=== PATIENT | female | born 1990 | race Caucasian/White ===

== ENCOUNTER 2022-11-21 09:30 | Outpatient (CLI) | payer BC, OTHER, SELFPAY | END 2022-11-21 09:31 | disposition home or self-care (01) | LOC: AMB 11-22 09:24 | PROVIDERS: PCP Family Medicine; Visit Provider Emergency Medicine | DX: R10.9 Unspecified abdominal pain (principal); R11.2 Nausea with vomiting, unspecified | CPT/HCPCS: A0425; A0427 ==

== ENCOUNTER 2022-11-21 09:53 | Emergency (ER) | payer BC, OTHER, SELFPAY ==
[2022-11-21] VITALS (7 sets, daily range): BP systolic 118–142; BP diastolic 71–76; PULSE 71–87; RESP 14–20; TEMP 35.1–36.1; O2SAT 97–100; BMI 41.5
--- NOTE | 2022-11-21 09:55 | ED.GENADULT ---
HPI - General Adult General Time Seen by Provider: 09:55 Date Seen: 11/21/22 Chief complaint: Nausea/Vomiting Stated complaint: shortness of breath and chest pain Time Seen by Provider: 11/21/22 09:55 Source: patient, EMS, RN notes reviewed and other (phone call from clinic from provider Dr. Ferrer) Mode of arrival: EMS Limitations: no limitations History of Present Illness HPI narrative: This 32-year-old female is brought in by ambulance from [facility] where she was seeing Dr. Ferrer for routine OB appointment and was to have a schedule biophysical profile due to obesity in , have been following them weekly. In route to her appointment she develop severe epigastric pain radiating into her back. There is no radiation to her shoulder. She felt short of breath and the fact that it hurts in the epigastric area to take a deep breath. No cough or cold symptoms, no fevers chills. She did have subsequent couple emesis in clinic. She was diaphoretic. She has had nausea vomiting throughout the but this is different, is never had pain like this before. EMS got her sugar to be 134, did place an IV in the left antecubital fossa, she receive 4 mg IV Zofran which is helping. She is still having severe pain in the epigastric area and it hurts worse with breathing. She has had no contractions, no vaginal discharge or bleeding. Denies any urinary symptoms. Only abdominal surgery is a prior . She has reported the 3 para 1 at 34 weeks and 1 day . MD complaint: Severe epigastric pain radiating to back in patient Onset (ago): minute(s) Radiation: back Severity: severe Pain Consistency: constant Relieving factors: none Related Data Home Medications Medication Instructions Recorded Confirmed docosahexaenoic acid 200 mg mg PO PRN 10/28/22 10/28/22 capsule ( DHA) fluoxetine 40 mg capsule 40 mg PO DAILY 10/28/22 10/28/22 ondansetron 4 mg disintegrating 4 mg PO Q8H PRN 10/28/22 10/28/22 tablet Previous Rx's Medication Instructions Recorded ondansetron 4 mg disintegrating 4 mg PO Q8H PRN nausea and 11/21/22 tablet vomiting #20 tabs oxycodone-acetaminophen 5 mg-325 1 tab PO Q6H PRN pain #20 tabs 07/06/23 mg tablet (Percocet) Allergies Allergy/AdvReac Type Severity Reaction Status Date / Time No Known Drug Allergies Allergy Verified 10/28/22 08:00 Review of Systems Status of ROS: Reports: 6 or more systems reviewed and unremarkable except as noted in History and below [facility] Medical History Migraines ?G43.909 - Migraine, unspecified, not intractable, without status migrainosus (ICD-10) History of vitamin D deficiency ?Z86.39 - Personal history of other endocrine, nutritional and metabolic disease (ICD-10) Blighted ovum (11/13/19) ?O02.0 - Blighted ovum and nonhydatidiform mole (ICD-10) Surgical History Status post delivery (05/21/16) ?Z98.891 - History of uterine scar from previous surgery (ICD-10) Family History Father High blood pressure Maternal Grandfather Diabetes Social History Smoking Status: Former smoker Non-prescribed substance use: denies use Exam Const: Vital Signs, click to edit/add: Vital Signs - 24 hr 11/21/22 10:00 11/21/22 10:01 11/21/22 10:01 Temperature 95.1 F L 95.1 F L Pulse Rate 73 Pulse Rate [Pulse Oximeter] 74 Respiratory Rate 20 14 Blood Pressure 139/76 Blood Pressure [Ri ght Upper Arm] 139/76 Pulse Oximetry 98 100 100 Oxygen Delivery Me thod Room Air 11/21/22 10:32 11/21/22 11:02 11/21/22 11:15 Temperature 96.6 F L Pulse Rate 71 73 Pulse Rate [Pulse Oximeter] Respiratory Rate Blood Pressure 142/71 H 131/71 Blood Pressure [Ri ght Upper Arm] Pulse Oximetry 99 98 Oxygen Delivery Me thod 11/21/22 11:15 11/21/22 13:09 Temperature 96.6 F L 96.9 F L Pulse Rate 87 71 Pulse Rate [Pulse Oximeter] Respiratory Rate 14 Blood Pressure Blood Pressure [Ri ght Upper Arm] Pulse Oximetry 99 97 Oxygen Delivery Me thod Documenting provider has reviewed patient's vital signs: yes Common normals: oriented x3 and alert General appearance: cooperative, well kempt, well developed, in distress and ill appearing Other: patient that appears uncomfortable, slow in her movements, looks like she does not feel well and is diaphoretic but otherwise skin visualized without rash. HENMT: Common normals: normocephalic, head/scalp atraumatic, hearing grossly normal bilaterally and external nose normal Head and scalp: normocephalic and atraumatic Face and sinus: normal facial exam Nose: external nose normal Eye: Common normals: PERRL, EOMs intact bilaterally, conjunctivae normal and no scleral icterus Conjunctiva: conjunctiva(e) normal Pupil: PERRL Neck & C-Spine: Common normals: full ROM, no lymphadenopathy, supple, no meningeal signs, no JVD and thyroid normal Thyroid: thyroid normal Chest: Common normals: inspection of chest normal and palpation of chest normal Resp: Common normals: normal respiratory effort, no retractions, no use of accessory muscles and clear to auscultation bilaterally Effort & inspection: able to speak in complete sentences Auscultation: clear to auscultation bilaterally Cardio: Common normals: no JVD, regular rate, regular rhythm, S1 normal heart sound, S2 normal heart sound, no gallops, no clicks and no murmurs Rate: regular rate Rhythm: regular rhythm Heart sounds: S1 normal and S2 normal GI: Other: Gravid patient with significant epigastric tenderness, right upper quadrant tenderness as well but seems to be most tender in epigastric area. I do not sense guarding at this time but do feel that there is a bit of rebound in the epigastric area. Uterus is gravid and nontender. Extremity: Common normals: no calf tenderness and no pedal edema Other: Transfers herself from the ambulance gurney to the ER cart. Neuro: Common normals: oriented x3 Sensorium/orientation: alert Meningeal signs: no meningeal signs Psych: Appearance: well kempt Course Course Hospital Course: Patient is in need of some pain management, will give 4 mg IV Zofran and she will be monitored on pulse oximetry. EMS did give her Zofran which seems to be improving the nausea symptoms. Will be obtaining a right upper quadrant/limited abdominal ultrasound. I worry about gallbladder disease and possible pancreatitis with this. She is hemodynamically stable from the report in clinic and EMS, will see what her vitals are trending here. There is no evidence of tachycardia or hypoxia. I think this is an abdominal process rather than anything pulmonary or cardiac. Will review the EKG from clinic, hopefully it was sent but report from Dr. Ferrer was that it showed normal sinus rhythm. Will do full complement of labs. When she is had her abdominal ultrasound which is to happen shortly, will have Ob nursing staff come down and do monitoring for biophysical profile. Reevaluation(s) Time of Reevaluation #1: 11:50 Reevaluation #1: Patient is actually feeling a bit better after the 2nd dose of Zofran and a subsequent extra 2 mg IV morphine. Reviewed that there is cholelithiasis. Her mom was wondering if this was not the case as she has been so sick this whole . We reviewed that the preference is to allow the baby to deliver 1st before doing any surgery for gallbladder. There is no evidence of pancreatitis or cholecystitis at this time. She has taken Percocet in the past. Were going to give her an oral dose now and see if she tolerates it. We can send her home with Percocet and Zofran. She notes that she absolutely has no respiratory symptoms now that her pain is better. It is not hurting to breathe, not feeling short of breath because of pain with breathing. Again, inclined to not do any further imaging such as chest CT PE protocol as I do not feel it is indicated. Consultations Consultation #1: Patient is done with her right upper quadrant ultrasound, awaiting radiology over read of this. Have contacted Ob staff to come do monitoring/NST of this patient while here. Time: 10:53 Consultation #2: Spoke with our general surgeon Dr. Fernandez. She would like to see how patient does with pain management. Obviously, it is favored to deliver the baby 1st before any surgery for her gallbladder. There is no evidence of cholecystitis or pancreatitis at this time. Will work on pain management and see if we can discharge to home for further outpatient evaluation with a surgical consult. Time: 11:34 Consultation #3: Did update Dr. Ferrer, reviewed patient situation. I have not been into re-evaluate the patient since she requires 2nd dose of morphine and Zofran for pain and nausea respectively. It would appear that there is cholelithiasis. Based on her complaint of her respiratory symptoms being attached to the epigastric pain, feel that this is unlikely to be thromboembolic disease. I will re-evaluate patient and see how she is doing. Time: 11:39 Additional Consultation(s): Did speak with Dr. Ferrer prior to discharge. Patient is going to be discharged from the ER, she will go to OB to await BPP, had NST while here and baby was not super reactive but Mom and dad IV morphine/narcotics. Will discharge with appropriate Percocet and Zofran, she is to follow up tomorrow in clinic at 10:00 a.m. with her primary care provider. Vital Signs Vital signs: Initial Vital Signs Pulse Oximetry 98 11/21/22 10:00 Vital Signs Pulse Oximetry 98 11/21/22 10:00 Temperature 96.9 F L 11/21/22 13:09 Pulse Rate 71 11/21/22 13:09 Respiratory Rate 14 11/21/22 13:09 Blood Pressure 131/71 11/21/22 11:02 Pulse Oximetry 97 11/21/22 13:09 Oxygen Delivery Method Room Air 11/21/22 10:01 Medical Decision Making Lab Data Lab results reviewed: Yes I reviewed the patient's lab results Labs: Lab Results 11/21/22 11/21/22 Range/Units 10:30 11:40 WBC 13.19 H (4.50-11.00) K/uL RBC 4.29 (4.00-5.20) m/uL Hgb 11.5 L (12.0-16.0) gm/dL Hct 35.3 (33.0-51.0) % MCV 82 (80-100) fL MCH 27 (26-34) pg MCHC 33 (32-36) gm/dL RDW Coeff of Ce 13.2 (11.5-15.5) % Plt Count 279 (140-440) K/uL Neut % (Auto) 82.6 H (42.0-72.0) % Lymph % (Auto) 12.1 L (20-44) % [place] % (Auto) 4.7 (0.0-11.0) % Eos % (Auto) 0.1 (0.0-7.0) % Baso % (Auto) 0.2 (0.0-3.0) % Neut # (Auto) 10.90 H (1.7-7.0) K/uL Lymph # (Auto) 1.60 (0.90-2.90) K/uL [place] # (Auto) 0.60 (0.00-0.90) K/UL Eos # (Auto) 0.00 (0.00-0.50) K/uL Baso # (Auto) 0.00 (0.00-0.30) K/uL Sodium 133 L (135-149) mmol/L Potassium 3.5 L (3.6-5.1) mmol/L Chloride 105 (96-114) mmol/L Carbon Dioxide 18 L (20-32) mmol/L BUN 5 (5-24) mg/dL Creatinine 0.4 L (0.5-1.5) mg/dL Estimated Creat Clear 168.57 Estimated GFR 136 ml/min Glucose 128 H (60-115) mg/dL Lactate 1.7 (0.5-1.9) mmol/L Calcium 9.2 (8.4-10.6) mg/dL Total Bilirubin 0.4 (0.1-1.5) mg/dL Direct Bilirubin 0.1 (0.0-0.5) mg/dL AST 18 (12-35) U/L ALT 14 (4-35) U/L Alkaline Phosphatase 155 H (40-150) U/L C-Reactive Protein 4.8 H (0.5-1.0) mg/dL Total Protein 6.6 (6.0-8.3) g/dL Albumin 3.4 (3.3-5.0) g/dL Lipase 62 (23-300) U/L Urine Color Yellow (Yellow) Urine Appearance Turbid A (Clear) Urine pH 8.5 (5.0-8.5) Ur Specific [place] 1.020 (1.000-1.030) Urine Protein Trace A (Negative) Urine Glucose (UA) Negative (Negative) Urine Ketones 3+ A (Negative) Urine Blood Negative (Negative) Urine Nitrite Negative (Negative) Urine Bilirubin Negative (Negative) Urine Urobilinogen 0.2 (0.2-1.0) Ur Leukocyte Esterase Negative (Negative) Urine RBC 0-2 (0-2) Urine WBC 0-2 (0-5) Ur Squamous Epith Cells Few (None-Few) Amorphous Sediment Many A (None) Urine Bacteria Moderate A (None) Urine Mucus Few A (None) POC Troponin I 0.02 (0.01-0.04) ng/ml Imaging Data US - abdomen: Attestation: I have reviewed the pertinent imaging results. Radiologist's impression: Patient: LANDEN BAEZ Facility:?[facility] Patient ID:?[id number] Site Patient ID:?[id number]. Site :?[id number] Study:?US Abdomen RUQ-11/21/2022 10:56:04 AM Ordering Physician:?Janae Khoury Final Report: INDICATION: RUQ/ EPIGASTRIC PAIN WITH NAUSEA AND VOMITING COMPARISON: none TECHNIQUE: Real time muñoz scale imaging and color Doppler analysis was performed of the right upper quadrant. FINDINGS: The patient`s liver is of normal size and has uniform echogenicity. There is a normal appearance of the hepatic IVC and proximal abdominal aorta. There is no evidence of ascites. The gallbladder is of normal size and there is a tiny amount of layering sludge within the gallbladder lumen along with a small layering stone. The gallbladder wall measures 2 mm in thickness. The common bile duct is of normal size and measures 6 mm in diameter at the level of the luisito hepatis. The pancreas appears normal. There is no evidence of a stone or hydronephrosis within the right kidney. The right kidney measures 12.7 cm in length. IMPRESSION: Mild cholelithiasis. No evidence of cholecystitis. Dictated by Mateo Rashid MD @ 11/21/2022 11:20:16 AM (Electronic Signature) Critical Care Time Critical Care Time Critical Care Time: No Discharge Plan Discharge Clinical Impression: Cholelithiasis affecting in third trimester, antepartum Patient Disposition: Home, Self-Care Condition: Improved Instructions: Gallstones (ED) Additional Instructions: Proceed to OB to have BPP done. Need to follow up in clinic at 10am tomorrow with Dr. Ferrer. Have sent in percocet and zofran for you. Need to get scheduled for follow up appointment with general surgery, Dr. Ferrer can help get this scheduled. If you develop fever with increased abdominal pain, uncontrolled vomiting despite medications, have worsening abdominal pain, need to be re-evaluated. Activity Level: Activity as Tolerated Discharge Diet: Low Fat/Low Cholesterol Prescriptions: New ondansetron 4 mg tablet,disintegrating 4 mg PO Q8H PRN (Reason: nausea and vomiting) Qty: 20 0RF oxycodone-acetaminophen [Percocet] 5-325 mg tablet 1 tab PO Q6H PRN (Reason: pain) Qty: 20 0RF No Action DHA 200 mg capsule PO PRN ondansetron 4 mg tablet,disintegrating 4 mg PO Q8H PRN fluoxetine 40 mg capsule 40 mg PO DAILY Follow Up/Referrals: Lauren Ferrer MD [Primary Care Provider] - Stand Alone Forms: Swipp Info Instructions
--- NOTE | 2022-11-21 10:00 | CRLHL7_ITS ---
For Patients: As a result of the Century Cures Act, medical imaging exams and procedure reports are released immediately into your electronic medical record. You may view this report before your referring provider. If you have questions, please contact your health care provider. INDICATION: RUQ/ EPIGASTRIC PAIN WITH NAUSEA AND VOMITING COMPARISON: none TECHNIQUE: Real time muñoz scale imaging and color Doppler analysis was performed of the right upper quadrant. FINDINGS: The patient`s liver is of normal size and has uniform echogenicity. There is a normal appearance of the hepatic IVC and proximal abdominal aorta. There is no evidence of ascites. The gallbladder is of normal size and there is a tiny amount of layering sludge within the gallbladder lumen along with a small layering stone. The gallbladder wall measures 2 mm in thickness. The common bile duct is of normal size and measures 6 mm in diameter at the level of the luisito hepatis. The pancreas appears normal. There is no evidence of a stone or hydronephrosis within the right kidney. The right kidney measures 12.7 cm in length. IMPRESSION: Mild cholelithiasis. No evidence of cholecystitis. Dictated by Mateo Rashid MD @ 11/21/2022 11:20:16 AM (Electronically Signed)
[2022-11-21] MEDS: MORPHINE 4 MG/ML INJ IVP (10:09)
[2022-11-21] MEDS: 0.9 % SODIUM CHLORIDE 1000 ml 1,000 ML 500 ML IV (10:11)
[2022-11-21 10:41] LABS: Lactate* 1.7 mmol/L (0.5-1.9)
[2022-11-21 10:45] LABS: Basophils Percent Auto 0.2 % (0.0-3.0); Eosinophils Percent Auto 0.1 % (0.0-7.0); Hematocrit 35.3 % (33.0-51.0); Hemoglobin* 11.5 gm/dL (12.0-16.0); Immature Granulocytes Pct Auto 0.3 %; Lymphocytes Percent Auto 12.1 % (20-44); Mean Corpuscular HGB Conc 33 gm/dL (32-36); Mean Corpuscular Hemoglobin 27 pg (26-34); Mean Corpuscular Volume 82 fL (80-100); Monocytes Percent Auto 4.7 % (0.0-11.0); Neutrophils Percent Auto 82.6 % (42.0-72.0); Platelet Count* 279 K/uL (140-440); RDW Coefficient of Variation % 13.2 % (11.5-15.5); Red Blood Count 4.29 m/uL (4.00-5.20); White Blood Count* 13.19 K/uL (4.50-11.00)
[2022-11-21 10:49] LABS: Slide Review Reflex No
[2022-11-21 11:00] LABS: Troponin, Point-of-Care* 0.02 ng/ml (0.01-0.04)
--- NOTE | 2022-11-21 11:01 | ED.NURSE ---
Unable to obtain temp >95.1 oral after warm blankets. MD informed. Will continue to monitor.
[2022-11-21 11:09] LABS: Albumin* 3.4 g/dL (3.3-5.0); Chloride* 105 mmol/L (96-114); Sodium* 133 mmol/L (135-149)
[2022-11-21 11:10] LABS: Potassium* 3.5 mmol/L (3.6-5.1)
[2022-11-21 11:11] LABS: Creatinine* 0.4 mg/dL (0.5-1.5); Est. Creatinine Clearance* 168.57; Estimated Glomerular Filt Rate 136 ml/min
[2022-11-21 11:12] LABS: Alkaline Phosphatase* 155 U/L (40-150); Aspartate Amino Transferase* 18 U/L (12-35); Bilirubin Direct* 0.1 mg/dL (0.0-0.5); Bilirubin Total* 0.4 mg/dL (0.1-1.5); Blood Urea Nitrogen* 5 mg/dL (5-24); Carbon Dioxide* 18 mmol/L (20-32); Lipase* 62 U/L (23-300); Total Protein* 6.6 g/dL (6.0-8.3)
[2022-11-21 11:13] LABS: Alanine Aminotransferase* 14 U/L (4-35); Calcium* 9.2 mg/dL (8.4-10.6); Glucose* 128 mg/dL (60-115)
[2022-11-21 11:15] LABS: C Reactive Protein* 4.8 mg/dL (0.5-1.0)
[2022-11-21] MEDS: ONDANSETRON 2 MG/ML inj 4 MG IVP (11:30)
[2022-11-21] MEDS: MORPHINE 2 MG/ML inj IVP (11:38)
[2022-11-21 11:48] LABS: Appearance Urine Turbid (Clear); Bilirubin Urine Negative (Negative); Blood Urine Negative (Negative); Color Urine Yellow (Yellow); Glucose Urine Negative (Negative); Ketones Urine 3+ (Negative); Leukocyte Esterase Urine Negative (Negative); Nitrite Urine Negative (Negative); Protein Urine Trace (Negative); Urobilinogen Urine 0.2 (0.2-1.0); pH Urine 8.5 (5.0-8.5)
[2022-11-21 12:07] LABS: Amorphous Sediment Urine Many; Bacteria Urine Moderate; Mucus Urine Few; RBC Urine 0-2 (0-2); Squamous Epithelial Cell Urine Few (None-Few); WBC Urine 0-2 (0-5)
--- NOTE | 2022-11-21 12:14 | ED.NURSE ---
OB RN at bedside.
--- NOTE | 2022-11-21 13:42 | ED.NURSE ---
Patient to US for BPP.
--- NOTE | 2022-11-21 17:09 | PC.OBNST ---
NST Note NST Note Start: 11/21/22 12:45 Freq: ONCE Status: Discharge Protocol: Document 11/21/22 17:05 ABP (Rec: 11/21/22 17:08 ABP [id number]) NST Note 3 Para (# of births) 1 EDC 01/01/23 Gestational Age In Weeks & Days 34 Weeks & 1 Days Patient Presented with Complaint(s) of Other Other Complaints Diagnosed with gallstones in ED Reactive No Appropriate for Gestational Age No CANDICE Ramirez RN Date 11/21/22 Reactive No Appropriate for Gestational Age No CANDIEC Lancaster RN Date 11/21/22 OB NST charge Yes Complete NST Note via Write Note Yes The provider's electronic signature indicates the NST is reactive/appropriate for gestational age. *Note to provider: If an addendum is required, open the patient's chart and click on the note under the Nurse/Allied Health tab.
== END 2022-11-21 13:46 | disposition home or self-care (01) ==
PROVIDERS: Emergency Provider Family Medicine; PCP Family Medicine
DX: K80.20 Calculus of gallbladder without cholecystitis without obstruction (principal); O26.93 Pregnancy related conditions, unspecified, third trimester
CPT/HCPCS: 36415; 59025; 76705; 76819; 80053; 81001; 82248; 83605; 83690; 84484; 85025; 86140; 87086; 94761; 99211; 99283; 99285; J2270; J2405; J7030

== ENCOUNTER 2022-11-21 14:22 | Outpatient (CLI) | payer BC, OTHER, SELFPAY ==
[2022-11-21 15:14] VITALS: BP 126/66; PULSE 81
--- NOTE | 2022-11-21 17:10 | PC.OBNST ---
NST Note NST Note Start: 11/21/22 15:12 Freq: ONCE Status: Discharge Protocol: Document 11/21/22 15:31 ABP (Rec: 11/21/22 15:33 ABP [id number]) NST Note 3 Para (# of births) 1 EDC 01/01/23 Gestational Age In Weeks & Days 34 Weeks & 1 Days Patient Presented with Complaint(s) of Other Other Complaints Patient was seen in ED for gallstones. Did not have reactive NST there after receiving Morphine. Got BPP to confirm. Got 6/8 on BPP. Back to Center for NST. Reactive Yes Appropriate for Gestational Age Yes CANDICE Ramirez, RN Date 11/21/22 Reactive Yes Appropriate for Gestational Age Yes CANDICE Lancaster, CANDICE Date 11/21/22 OB NST charge Yes Complete NST Note via Write Note Yes The provider's electronic signature indicates the NST is reactive/appropriate for gestational age. *Note to provider: If an addendum is required, open the patient's chart and click on the note under the Nurse/Allied Health tab.
== END 2022-11-21 15:25 | disposition home or self-care (01) ==
LOC: OB CLI 14:23 → OB 14:26
PROVIDERS: PCP Family Medicine; Visit Provider Family Medicine
DX: O26.613 Liver and biliary tract disorders in pregnancy, third trimester (principal)
CPT/HCPCS: 36415; 59025; 76705; 76819; 80053; 81001; 82248; 83605; 83690; 84484; 85025; 86140; 87086; 94761; 99211; 99285; J2270; J2405; J7030

== ENCOUNTER 2022-12-06 17:00 | Inpatient (IN) | payer BC, OTHER, SELFPAY ==
[2022-12-06] VITALS (62 sets, daily range): BP systolic 84–144; BP diastolic 59–71; PULSE 62–90; RESP 18–20; TEMP 36.4–36.5; O2SAT 81–100
[2022-12-06] MEDS: LACTATED RINGERS 1000 ML 1,000 ML IV ×2 (07:28→08:55)
--- NOTE | 2022-12-06 07:37 | PM.OBHPLI ---
OB - H&P: HPI Labor/Induction History of Present Illness Time Seen by Provider: 07:37 Date Seen: 12/06/22 Chief Complaint: The patient is a 32 year old 3 para 1001 at 36.2 weeks gestation by early ultrasound, who presents with concern for labor. Chief complaint: maternity : 3 Para: 1 Narrative: Khadra Glaser is a 32 year old female 3 para 1001 at 36.2 weeks gestation by early ultrasound, who presents with concern for labor. Patient was seen in clinic yesterday, was closed/thick/high. She started iwona this morning at 3am. Woke her from sleep. She tried position changes, bath, did not change the contractions. She is unable to speak through contractions. She is iwona every3-5 minutes. No bleeding, no gush of fluid. she believes baby is moving well. She was seen yesterday in clinic and had BPP 8/10 (non reactive NST) done for BMI>35. She had LUIS FERNANDO of 4.98 with SDB of 2. We had elected to hydrate overnight and recheck fluid level this morning. She is planning a repeat . She did have symptomatic cholelithiasis 2 weeks ago requiring extended ED stay. She has not had recurrence. Did receive morphine and percocet at that time. She is on prozac for mood She has mild asthma, on albuterol prn History of Present Dating criteria: based on LMP (approximate LMP and confirmed by early ultrasound) care: good care Ultrasounds: normal mid trimester US Abnormal ultrasound findings: Level 2 done with [facility] Narrative: symptomatic cholelithiasis, no recurrence of symptoms. Labs Blood type: A (+) positive Rubella: immune RPR/VDLR: nonreactive GBS status: unknown HBsAG: negative Review of Systems Const: Reports: fatigue Eyes: Denies: change in vision or blurry vision Cardio: Denies: chest pain, edema or shortness of breath with exertion Resp: Denies: shortness of breath GI: Reports: abdominal pain, nausea and vomiting : Denies: painful urination Integ/Breast: Denies: rash Neuro: Denies: headache Endo: Reports: fatigue Meds Home Medications and Allergies Home Medications Medication Instructions Recorded Confirmed Type docosahexaenoic acid 200 mg mg PO PRN 10/28/22 10/28/22 History capsule ( DHA) fluoxetine 40 mg capsule 40 mg PO DAILY 10/28/22 11/21/22 History ondansetron 4 mg disintegrating 4 mg PO Q8H PRN 10/28/22 11/21/22 History tablet diphenhydramine HCl 50 mg/30 mL 25 mg PO QHS 11/21/22 11/21/22 History oral liquid (NightTime Sleep Aid (diphenhydramine)) Allergies Allergy/AdvReac Type Severity Reaction Status Date / Time No Known Drug Allergies Allergy Verified 10/28/22 08:00 OB - H&P: Exam Physical Exam: Vital signs: Pulse BP Pulse Ox 71 138/66 99 12/06/22 07:37 12/06/22 07:37 12/06/22 07:35 Constitutional: Constitutional: mild distress (appears very uncomfortable with contractions) Routine HEENT Exam: Head: Present atraumatic and scalp tenderness Routine Neck Exam: Neck: Present full ROM Routine Respiratory Exam: Respiratory: Present CTA bilaterally Routine Cardiovascular Exam: Cardiovascular: RRR, S1 and S2 Detailed Abdominal Exam: Comments: gravid, nontender, softens between contractions Routine Exam: Perineum Description: Normal Detailed Labor and Delivery Exam: Patient Gravid: Yes Dilation (cm): 1 Effacement (%): 70 Cervix position: mid Consistency: soft Contraction frequency (min): 4 Tachysystole: No Contraction intensity: Moderate Fetus (Single): Station: 0 Amniotic Membrane Status: intact Heart Rate Baseline: 135 Monitor Accelerations: Present Monitor Decelerations: None Long-Term Variability: Moderate (6-25) Routine Back/Spine/Pelvis Exam: Back/Spine: full ROM Routine Neurological Exam: Present alert Routine Psychiatric Exam: Present normal affect OB - Problem Based A/P Additional Plan (1) with 36 completed weeks gestation: Status: Acute (2) Depression: Status: Chronic (3) Exercise-induced asthma: Status: Chronic (4) History of : Status: Acute Plan - Has changed from closed to 1 today. has thinned significantly. - is iwona painfully - Given , will monitor and recheck to make sure she is having continued cervical change. - Discussed with OB family practice nurse practitioner, who is in route to center and will assess when she arrives. - PLanning repeat if she is truly in labor. Will give IV fluids and zofran now for supportive cares. Delivery/Labor/Induction Plan Plan: other (will do if continuing to make cervical change. )
[2022-12-06] MEDS: ONDANSETRON 2 MG/ML inj 4 MG IVP (07:55)
[2022-12-06] MEDS: LACTATED RINGERS 1000 ML 1,000 ML 125 ML IV (10:15)
[2022-12-06] MEDS: NIFEdipine 10 MG CAPSULE PO (10:29)
[2022-12-06] MEDS: fentaNYL 100 MCG/2 ML inj IVP ×2 (11:11→16:39)
--- NOTE | 2022-12-06 12:00 | CRLHL7_ITS ---
For Patients: As a result of the Century Cures Act, medical imaging exams and procedure reports are released immediately into your electronic medical record. You may view this report before your referring provider. If you have questions, please contact your health care provider. Indication: Oligohydramnios. Assess well-being via a biophysical profile. Technique: Sonography of the gravid uterus was performed. The study is limited to that which is discussed below, a biophysical profile Comparison: November 21, 2022 Findings: The cervix was not visualized position is vertex. The placenta is anterior. Fluid volumes are low. The single deepest pocket is 2.9 centimeters. The total LUIS FERNANDO is 4.7 centimeters Biophysical profile is abnormal, 6 out of 8. Two points were awarded for gross body movements, tone and fluid volumes above 2 centimeters. No respiratory activity was noted regarding the fetus during the exam. This is the same score as on the prior study heart rate is 109 minutes. The technologist reported that there was a 5 second interval without heart activity noted during observation of heart rate Impression: 1. Single live intrauterine gestation that is vertex. 2. Re-demonstration oligohydramnios similar to the prior study. 3. Biophysical profile score remains abnormal, 6 out of 8. 0 points for respiratory motion. 4. heart rate is 109 beats per minute. A 5 2nd interval without heart activity was observed during this exam according to the technologist`s notes Dictated by Travis Giron MD @ 12/06/2022 1:30:51 PM (Electronically Signed)
[2022-12-06 13:36] LABS: Basophils Percent Auto 0.1 % (0.0-3.0); Hematocrit 36.4 % (33.0-51.0); Immature Granulocytes Pct Auto 0.3 %; Lymphocytes Percent Auto 6.3 % (20-44); Mean Corpuscular HGB Conc 33 gm/dL (32-36); Mean Corpuscular Hemoglobin 26 pg (26-34); Mean Corpuscular Volume 79 fL (80-100); Monocytes Percent Auto 1.1 % (0.0-11.0); Neutrophils Percent Auto 92.2 % (42.0-72.0); Platelet Count* 395 K/uL (140-440); RDW Coefficient of Variation % 13.2 % (11.5-15.5); Red Blood Count 4.62 m/uL (4.00-5.20); White Blood Count* 16.62 K/uL (4.50-11.00)
[2022-12-06] MEDS: hydrOXYzine pamoate 25 MG CAPSULE 100 MG PO (13:37)
[2022-12-06 13:38] LABS: Slide Review Reflex No
[2022-12-06] MEDS: MORPHINE 10 MG/ML inj IM (13:38)
[2022-12-06 13:57] LABS: Albumin* 3.7 g/dL (3.3-5.0)
[2022-12-06 13:59] LABS: Creatinine* 0.4 mg/dL (0.5-1.5); Estimated Glomerular Filt Rate 136 ml/min; Total Protein* 7.2 g/dL (6.0-8.3)
[2022-12-06 14:00] LABS: Alanine Aminotransferase* 21 U/L (4-35); Alkaline Phosphatase* 186 U/L (40-150); Aspartate Amino Transferase* 22 U/L (12-35); Bilirubin Total* 0.6 mg/dL (0.1-1.5); Lipase* 75 U/L (23-300)
--- NOTE | 2022-12-06 14:49 | PM.OBPNL ---
Subjective Time Seen by Provider: 14:50 Date Seen: 12/06/22 Narrative: Patient continued to have painful contractions. Did not make significant cervical change (1 cm on presentation to 1.5 cm, thinner). We gave IV fluids and zofran as she was quite nauseated. I discussed with Dr. Delvin Rodriguez who recommended trial of nifedipine. This was given, which in addition to the fluids helped to space the contractions some. Patient still had contractions that were quite painful for her, but was not making cervical change. We did BPP, which was 10/24. During the BPP, fiberglass technician reports baby's heart stopped for 5 seconds and then restarted. I discussed this with perinatology (MPP Dr. Hayes) and Dr. Delvin Rodriguez who both agreed this is likely PAC or vagal from ultrasound probe pressure. Patient was given morphine/vistaril and did have improvement in symptoms. Patient's baseline changed to 105-110 and did have 2 late decels. I did again review the strip with Dr. Delvin Rodriguez at 2:53 who felt patient was ok to continue to monitor as strip improved and late decels were not recurrent. Objective Vital Signs: Last Vital Signs Temp 97.5 F L 12/06/22 10:32 Pulse 62 12/06/22 14:41 Resp 20 12/06/22 10:32 BP 118/60 12/06/22 14:41 Pulse Ox 100 12/06/22 09:44 Pelvic Exam Dilation (cm): 1.5 Effacement (%): 90 Station: 0 Contractions Monitor mode: External Contraction pattern: Regular Contraction intensity: Moderate Assessment Assessment: early labor Station: 0 Heart Rate Baseline: 135 Firearms Assembly Supervisor Variability: Moderate (6-25) Monitor Accelerations: Present Monitor Decelerations: Late Plan Plan: - Patient is planning repeat , has not had indication at this time to proceed with delivery given status and no significant cervical change. - I have discussed this patient and reviewed strip with Dr. Delvin Rodriguez several times today. - Will continue with prolonged monitoring at this time. - We discussed that if contractions space and baby had reassurring strip we could consider discharge - if patient's contractions return and she makes cervical change we could consider delivery, though we discussed this is not ideal at 36 weeks. - If patient's FHT become non-reassuring, we will of course move to .
[2022-12-06] MEDS: OXYTOCIN 30 unit/500 ML in NS 30 UNIT/500 ML BAG 300 UNIT IV (17:21)
--- NOTE | 2022-12-06 19:27 | W.PM.OBVAGDE ---
OB Procedure Vag Delivery Mother Details Mother Details: The patient is a 32 year-old, 3, Para 1, admitted on 12/06/22 at 36w2d gestation. Patient was planning a repeat . Was admitted for labor rule out. She was at 1.5 cm most of the day with change in effacement, but no reason to deliver by given . We monitored throughout the day, she had no significant cervical change. Patient received morphine and vistaril which seemed to help with pain control. Also had fentanyl x 2 for pain control. She started having painful contractions again. Patient SROM'ed and then progressed to precipitous unplanned delivery. She SROM'ed at approximately 1702, reporting that she was feeling a lot of pressure and felt she needed to push. She was checked and was 6 cm at 1710. OB and OR were alerted to move to , but patient precipitously delivered at 1714. : 3 Para: 1 Weeks Gestation: 36.2 Admission Date: 12/06/22 Additional Details Amniotic Membrane Status: SROM Amniotic Membrane Rupture Date: 12/06/22 Amniotic Membrane Rupture Time: 17:02 Amniotic Membrane Fluid Description: Clear Analgesia/Anesthesia Type: Fentanyl Waterbirth: No Pitcoin: No Intrapartal Events: None and Precipitous Labor <3 Hrs Labor Onset: 17:10 Complete: 17:14 Pushin:14 Heart: heart tones during second stage were category 1 during strip that was captured. Strip was broken and did not trace well during the precipitous delivery and transition. Delivery Details Delivery Date: 12/06/22 Delivery Time: 17:14 Route of delivery: Infant Gender: Female Infant Viability: Alive; Heart Rate Present Position at Delivery: OA Delivery Details: Delivered over intact perineum via spontaneous vaginal after delivery. was placed on maternal abdomen.? Cord was clamped and cut after a 60 second delay. Nose and mouth were bulb suctioned.? weight 5 lbs 11 oz 1 Minute Interval Total Score: 8 5 Minute Interval Total Score: 9 Additional Details Shoulder Dystocia: No Placenta Delivery Time: 17:24 Placental Delivery Description: Spontaneous Delivery repair: Vicryl Blood Loss: 250 Laceration: Perineal - 2nd Degree Episiotomy Description: None Blood Loss Measurement Type: EBL Bakri Used: No Sponge/Need Count Correct: Yes Cord Vessel Description: 3 Vessels Event Summary Status: Mother and infant were stable after delivery. Disposition: no change
[2022-12-06] MEDS: IBUPROFEN 600 MG TABLET PO (20:11)
[2022-12-07] VITALS (16 sets, daily range): BP systolic 80–133; BP diastolic 42–85; PULSE 71–89; RESP 12–18; TEMP 36.5–37.1; O2SAT 94–98
[2022-12-07] MEDS: ACETAMINOPHEN 500 MG TABLET 1000 MG PO ×2 (01:21→13:04)
[2022-12-07 04:55] LABS: Hemoglobin* 9.7 gm/dL (12.0-16.0)
[2022-12-07] MEDS: 5 % DEXTROSE/0.45% SOD CHLOR 1,000 ML 125 ML IV (08:29)
[2022-12-07] MEDS: SODIUM CHLORIDE 0.9 % (FLUSH) 10 ML SYRINGE IVF (08:29)
[2022-12-07] MEDS: KETOROLAC 30 MG/ML inj IVP (08:29)
--- NOTE | 2022-12-07 10:04 | P.OBPN_ITS ---
OB - PN:Subj Subjective Time Seen by Provider: 08:00 Date Seen: 12/07/22 Patient comments OB post-: no complaints, pain well controlled, tolerating diet and flatus present infant status: [place] feeding status: exclusively OB - PN: Obj Exam Physical Exam: Vital signs: Temp Pulse Resp BP Pulse Ox O2 Del Method 98.7 F 71 18 133/83 97 Room Air 12/07/22 08:04 12/07/22 08:04 12/07/22 08:04 12/07/22 08:04 12/07/22 08:04 12/07/22 08:04 Constitutional: Constitutional: no acute distress Routine HEENT Exam: Head: Present atraumatic Detailed Neck Exam: Thyroids: Thyroid: Present normal Routine Respiratory Exam: Respiratory: Present CTA bilaterally Routine Cardiovascular Exam: Cardiovascular: Present RRR, S1 and S2; Absent murmur Routine Neurological Exam: Neurological: Present alert Routine Psychiatric Exam: Psychiatric: Present normal affect OB - PN: Obj Data Labs Labs: Laboratory Results - last 24 hr 12/06/22 12/06/22 12/07/22 13:30 21:20 04:35 WBC 16.62 H RBC 4.62 Hgb 12.0 11.0 L 9.7 L Hct 36.4 MCV 79 L MCH 26 MCHC 33 RDW Coeff of Ce 13.2 Plt Count 395 Neut % (Auto) 92.2 H Lymph % (Auto) 6.3 L Ralls % (Auto) 1.1 Eos % (Auto) 0.0 Baso % (Auto) 0.1 Neut # (Auto) 15.30 H Lymph # (Auto) 1.00 Ralls # (Auto) 0.20 Eos # (Auto) 0.00 Baso # (Auto) 0.00 Abs Immat Gran (auto) 0.00 Imm/Tot Granulo (auto) 0.3 Creatinine 0.4 L Estimated GFR 136 Total Bilirubin 0.6 Direct Bilirubin 0.0 AST 22 ALT 21 Alkaline Phosphatase 186 H Total Protein 7.2 Albumin 3.7 Lipase 75 Blood Type A Positive Antibody Screen NEGATIVE OB - PN: A/P Delivery Assessment and Plan (1) (vaginal after ): Status: Acute Assessment and Plan: Patient had unplanned precipitous after full day of laboring without significant change. She had planned on repeat . Doing well pos tpartum. (2) History of : Status: Inactive (3) delivery (maternal condition): Problem details: Delivered at 36w2d Status: Acute Plan Patient is doing well . Had planned on tubal with , requests salpingectomy today which is to be completed by Dr. Wilkinson. Appreciate her assistance with this help. Plan day: 1 Plan: routine care
--- NOTE | 2022-12-07 11:15 | P.PCNOB_ITS ---
Procedure Pre-op/Post-op diagnoses: Pre-Op/Post-Op Diagnoses Operation Date: 12/07/22 09:45 <No data on this case meets the specified criteria> Procedure: Procedures Operation Date: 12/07/22 09:45 Actual Procedure Side Surgeon p Post Tubal Ligation Gauri Wilkinson MD Anesthesia type: Spinal Complications: none Specimen: portion of right fallopian tube and portion of left fallopian tube Narrative: Preoperative diagnosis: 32 year-old 3 para 2011 who desires permanent sterilization. Postoperative diagnosis: Same Procedure: sterilization: mini-laparotomy with bilateral salpingectomy Anesthesia: Spinal and local Surgeon: Gauri Wilkinson MD Senior Asic Design Engineer: None Estimated blood loss: <5 mL Specimen: Right and left fallopian tubes to pathology Findings: On exam under anesthesia the fundus was noted to be approximately 2 cm below the umbilicus. The uterus, fallopian tubes and ovaries all appeared normal. Procedure: Prakash was taken was taken to the operating room where spinal anesthesia was administered and found to be adequate. She was placed in the dorsal supine position and prepped and draped in a normal sterile manner. 0.5% Marcaine was instilled in a horizontal manner, inferior to the umbilicus, 10 mL was used. The skin was then incised in a horizontal manner and the inferior aspect of the umbilicus. Approximately 4 cm length incision was made. This incision was carried sharply to the underlying layer of fascia. The fascia was grasped with 2 Allis clamps and incised in the midline with a scalpel. This incision was carried laterally with Whelan scissors. The peritoneum was identified and entered sharply with Beatrice clamps and Metzenbaum. No evidence of adhesions was identified. A small Ryan-O self-retaining retractor was then placed. The right fallopian tube was brought to the incision, grasped with 2 Ken clamps and followed to the fimbriated end of the fallopian tube. The hand-held LigaSure dissecting forceps was used to remove the fallopian tube from the cornua and broad ligament by sequential pedicles. The pedicles were started at the cornual and extended to the fimbriated end of the tube. The fallopian tube was removed from the br oad ligament superior to the ovary. Excellent hemostasis of the pedicles was obtained using bipolar cautery and a DeBakey forceps. The left fallopian tube was then brought to the incision, grasped with 2 Ken clamps and followed to the fimbriated end of the fallopian tube. The hand-held LigaSure dissecting forceps was again used to form pedicles along the fallopian tube. This time starting at the fimbria and making pedicles toward the cornua. The tube was amputated from the cornua of the uterus. All pedicles were visualized and hemostasis obtained using bipolar cautery with a DeBakey clamp. Hemostasis was again verified bilaterally. The Ryan-O retractor was then removed. The fascia was reapproximated using 0 Vicryl in a running manner. The subcutaneous tissue was irrigated with a small amount of saline and hemostasis was obtained as needed with bipolar cautery. 2-0 chromic subcutaneous sutures were placed due to subcutaneous tissue layer being approximately 5 cm. The skin was reapproximated using 4-0 Monocryl in a running subcuticular manner. Exofin surgical glue was applied to the incision. The patient tolerated this procedure well. Sponge, lap and instrument counts were correct x2 at the end of the procedure and the patient was taken to the recovery area in stable condition.
--- NOTE | 2022-12-07 11:22 | W.ANESCHARGE ---
Anesthesia Charges Start Date/Time Anesthesia Start Date: 12/07/22 Anesthesia Start Time: 09:52 Stop Date/Time Anesthesia Stop Date: 12/07/22 Anesthesia Stop Time: 11:10
[2022-12-07] MEDS: IBUPROFEN 600 MG TABLET PO ×2 (14:30→20:55)
[2022-12-08] VITALS (24 sets, daily range): BP systolic 104–160; BP diastolic 64–91; PULSE 60–85; RESP 14–16; TEMP 36.8–37.4; O2SAT 95–100
[2022-12-08] MEDS: ACETAMINOPHEN 500 MG TABLET 1000 MG PO ×4 (00:12→23:16)
[2022-12-08] MEDS: IBUPROFEN 600 MG TABLET PO (03:18)
[2022-12-08] MEDS: ONDANSETRON ODT 4 MG TAB PO (09:12)
[2022-12-08 09:42] LABS: Hematocrit 28.8 % (33.0-51.0); Hemoglobin* 9.2 gm/dL (12.0-16.0); Mean Corpuscular HGB Conc 32 gm/dL (32-36); Mean Corpuscular Hemoglobin 26 pg (26-34); Mean Corpuscular Volume 83 fL (80-100); Platelet Count* 277 K/uL (140-440); Red Blood Count 3.48 m/uL (4.00-5.20); White Blood Count* 13.17 K/uL (4.50-11.00)
[2022-12-08 09:46] LABS: Slide Review Reflex No
--- NOTE | 2022-12-08 09:52 | PM.OBPNVD1 ---
OB - PN:Subj Subjective Time Seen by Provider: 08:30 Date Seen: 12/08/22 Interval history: Patient started feeling quite nauseated this morning. Had Blood pressure. Patient comments OB post-: other (Patient reports nausea this morning. She had bowel movement and since then she has been very nauseated. Denies dizziness, blake. She has pain from the salpingectomy, mostly in the RLQ. She feels chilled, but no fevers. She has no perineal pain. Breast feeding is going ok. ) infant status: [place] feeding status: exclusively OB - PN: Obj Exam Physical Exam: Vital signs: Temp Pulse Resp BP Pulse Ox O2 Del Method 99.0 F 78 14 132/77 100 Room Air 12/08/22 09:00 12/08/22 09:43 12/08/22 09:00 12/08/22 09:43 12/08/22 09:00 12/08/22 09:00 Constitutional: Constitutional: mild distress (vomiting) Routine HEENT Exam: Head: Present atraumatic and normal inspection ENT: Present mucous membranes moist Routine Neck Exam: Neck: Present full ROM Detailed Neck Exam: Thyroids: Thyroid: Present normal Routine Respiratory Exam: Respiratory: Present CTA bilaterally; Absent crackles or rales Routine Cardiovascular Exam: Cardiovascular: Present RRR, S1 and S2; Absent murmur Routine Abdominal Exam: Fundus: Present firm Comments: Ecchymoses around umbilicus. Slightly tender diffusely. Detailed Lower Extremity Exam: Hip: bilateral: normal inspection Routine Back/Spine/Pelvis Exam: Back/Spine: Present full ROM Routine Neurological Exam: Neurological: Present alert and oriented X3 OB - PN: Obj Data Labs Labs: Laboratory Results - last 24 hr 12/08/22 09:37 WBC 13.17 H RBC 3.48 L Hgb 9.2 L Hct 28.8 L MCV 83 MCH 26 MCHC 32 Plt Count 277 OB - PN: A/P Delivery Assessment and Plan (1) (vaginal after ): Problem details: unplanned, precipitous Status: Acute (2) History of : Status: Inactive (3) delivery (maternal condition): Problem details: Delivered at 36w2d Status: Acute (4) Elevated BP without diagnosis of hypertension: Problem details: Elevated bp while vomiting today. BP has been otherwise within normal limits. Status: Acute Assessment and Plan: - monitor per protocol - Preeclampsia labs now - Has no symptoms of preeclampsia. - if persistently >140/90 will need to consider starting antihypertensives - If labs/symptoms become concerning for preeclampsia, will need to consider next steps. Plan - will not discharge today so we can continue to monitor blood pressure - Continue pain management, given zofran this morning for nausea. Plan Plan: routine care Procedures Procedures Performed: (Dr. Ferrer) Salpingectomy (Dr. Wilkinson)
[2022-12-08 09:58] LABS: Creatinine* 0.6 mg/dL (0.5-1.5); Estimated Glomerular Filt Rate 123 ml/min
[2022-12-08 09:59] LABS: Alanine Aminotransferase* 20 U/L (4-35); Aspartate Amino Transferase* 25 U/L (12-35); Blood Urea Nitrogen* 10 mg/dL (5-24)
--- NOTE | 2022-12-08 11:06 | CRLHL7_ITS ---
For Patients: As a result of the Cures Act, medical imaging exams and procedure reports are released immediately into your electronic medical record. You may view this report before your referring provider. If you have questions, please contact your health care provider. INDICATION: Vomiting. Two days post . TECHNIQUE: Volumetric helical scanning of the abdomen and pelvis was performed with 100 cc of Isovue 370 contrast material IV. Coronal and sagittal reconstructions were obtained. COMPARISON: None. FINDINGS: Recent postop changes of section are demonstrated. Blood clot in the myometrial wound is demonstrated. A small amount of clotted blood is also present in the lower uterine canal. No obvious filling defect is demonstrated in the uterine veins spread no free fluid or free intraperitoneal air is noted. No ovarian abnormality is noted. There is no evidence of bowel obstruction or inflammation. The liver is normal in size, shape and attenuation. The bile ducts are within normal limits. The spleen, adrenal glands and pancreas are negative. The kidneys are unremarkable. No lymphadenopathy is evident. The lung bases are essentially clear, and heart size is normal. IMPRESSION: Recent postop changes of Caesarean section with blood clot in the myometrial wound and small amount of clotted blood in the lower uterine cavity. Otherwise unremarkable. Please note that all CT scans at this facility use dose modulation, iterative reconstruction, and/or weight-based dosing when appropriate to reduce radiation dose to as low as reasonably achievable. Dictated by Freddy Pulliam MD @ 12/08/2022 11:47:21 AM (Electronically Signed)
[2022-12-08] MEDS: LACTATED RINGERS 1000 ML 1,000 ML 250 ML IV (11:07)
[2022-12-08] MEDS: ONDANSETRON 2 MG/ML inj 4 MG IV ×2 (11:08→15:37)
[2022-12-08 12:40] LABS: Total Protein Urine < 5 mg/dL
[2022-12-08 15:24] LABS: Hematocrit 29.5 % (33.0-51.0); Hemoglobin* 9.7 gm/dL (12.0-16.0); Mean Corpuscular HGB Conc 33 gm/dL (32-36); Mean Corpuscular Hemoglobin 27 pg (26-34); Mean Corpuscular Volume 81 fL (80-100); Platelet Count* 318 K/uL (140-440); Red Blood Count 3.64 m/uL (4.00-5.20); White Blood Count* 14.97 K/uL (4.50-11.00)
[2022-12-08 15:27] LABS: Slide Review Reflex No
[2022-12-08 15:38] LABS: Alanine Aminotransferase* 22 U/L (4-35); Aspartate Amino Transferase* 26 U/L (12-35); Creatinine* 0.5 mg/dL (0.5-1.5); Estimated Glomerular Filt Rate 129 ml/min
[2022-12-08 15:39] LABS: Blood Urea Nitrogen* 6 mg/dL (5-24)
[2022-12-08] MEDS: LABETALOL HCL 100 MG TABLET PO (15:57)
[2022-12-09 01:12] VITALS: BP 121/75; PULSE 84; RESP 15; TEMP 36.8; O2SAT 95
[2022-12-09] MEDS: IBUPROFEN 600 MG TABLET PO (01:39)
[2022-12-09 05:35] VITALS: BP 128/78
[2022-12-09 07:45] VITALS: BP 122/66; PULSE 82; RESP 18; TEMP 36.7; O2SAT 97
[2022-12-09] MEDS: ACETAMINOPHEN 500 MG TABLET 1000 MG PO (07:45)
[2022-12-09] MEDS: LABETALOL HCL 100 MG TABLET PO (09:02)
[2022-12-09] MEDS: DOCUSATE SODIUM 100 MG CAPSULE PO (09:02)
--- NOTE | 2022-12-09 20:09 | P.DS_ITS ---
DS: Providers Provider Time Seen by Provider: 07:30 Date Seen: 12/09/22 Date of admission: 12/06/22 17:00 Primary care physician: Lauren Ferrer MD Admitting Clinician: Lauren Ferrer MD Consults: [facility] for planned repeat (delivery by precipitous ) and post- tubal ligation. Attending Physician on discharge: Unique Kay MD Date of Discharge: 12/09/22 DS: Diagnosis Discharge Diagnosis (1) with 36 completed weeks gestation: Status: Acute (2) delivery (maternal condition): Status: Acute Problem details: Delivered at 36w2d (3) (vaginal after ): Status: Acute Problem details: unplanned, precipitous (4) Elevated BP without diagnosis of hypertension: Status: Acute Problem details: Elevated bp while vomiting today. BP has been otherwise within normal limits. Exam Narrative: Exam Narrative: General appearance: Well-appearing adult female. Alert, oriented and appropriate. Sitting up in hospital bed. HEENT: EOMI, no conjunctival injection or discharge. MMM. Neck: Supple. CV: RRR, no rubs, murmurs or extra heart sounds. Pulm: CTAB, no wheezes, rales or rhonchi. Abdomen: Soft, non-tender. Fundus palpated 2 cm above the umbilicus. MSK: Moving all extremities. Ext: Warm and well-perfused. No LE edema. Skin: post-surgical ecchymosis inferior to the umbilicus. Soft. Mild tenderness. Neuro: Grossly normal strength and sensation. No focal deficits. Psych: Normal affect. Const: Vital Signs, click to edit/add: Vital Signs - 24 hr 12/08/22 20:43 12/09/22 01:12 12/09/22 05:35 Temperature 98.9 F 98.2 F Pulse Rate [Blood Pressure Cuff] 85 84 Respiratory Rate 16 15 Blood Pressure [Ri ght Arm] 110/69 121/75 128/78 Pulse Oximetry 95 95 Oxygen Delivery Me thod Room Air 12/09/22 07:45 Temperature 98.0 F Pulse Rate [Blood Pressure Cuff] 82 Respiratory Rate 18 Blood Pressure [Ri ght Arm] 122/66 Pulse Oximetry 97 Oxygen Delivery Me thod Room Air OB - DS: Summary Hospital Course Hospital Course: The patient is a 32 year old G 3 now P 1102 at 36+2 weeks gestation that was admitted to the Center on 12/06/22 for labor. She has hx of prior section, was planning repeat , and was monitored throughout the day of admission for contractions without significant cervical change. Progressed very rapidly to precipitous, unplanned . She delivered a viable female infant. She is breast feeding. had non-severe range elevated blood pressures and was started on labetalol 100 mg BID with good control of blood pressure. Normal Pre-E labs. Underwent post- tubal ligation. Post-operative, experienced nausea and vomiting. CT abdomen was obtained and was unremarkable other than expected post- findings. Patient feeling well on the day of discharge. Peripartum Data delivery method: Laceration description: Perineal - 2nd Degree Episiotomy description: None Procedures: Procedures Operation Date: 12/07/22 09:45 Actual Procedure Side Surgeon p Post Tubal Ligation Gauri Wilkinson MD Procedures: tubal ligation/salpingectomy complications: other (Gestational hypertension) [place] Infant Gender: Female Discharge Plan: Home Status at Discharge Functional status at discharge: independent ambulation Overall status at discharge: patient is progressing back to baseline Time Spent with Patient Time attestation: Total time spent providing and/or coordinating discharge services: Time spent: Less than 30 minutes Discharge Plan Discharge Disposition: Home, Self-Care Date of Admission: 12/06/22 17:00 Attending Provider on Discharge: Unique Kay Primary Care Provider: Lauren Ferrer Condition: Stable Anticipated Discharge Date/Time: 12/09/22 08:20 Discharge Medications: New acetaminophen 500 mg Tablet 1,000 mg PO Q6H PRN (Reason: pain/fever) Qty: 30 0RF docusate sodium 100 mg Capsule 100 mg PO DAILY Qty: 30 0RF ibuprofen 600 mg Tablet 600 mg PO Q6H PRNQty: 30 0RF labetalol 100 mg Tablet 100 mg PO BID Qty: 60 0RF Continued DHA 200 mg capsule PO PRN fluoxetine 40 mg capsule 40 mg PO DAILY NightTime Sleep Aid (diphen) 50 mg/30 mL liquid 25 mg PO QHS Discontinued ondansetron 4 mg tablet,disintegrating 4 mg PO Q8H PRN ondansetron 4 mg tablet,disintegrating 4 mg PO Q8H PRN (Reason: nausea and vomiting) Qty: 20 0RF oxycodone-acetaminophen [Percocet] 5-325 mg tablet 1 tab PO Q6H PRN (Reason: pain) Qty: 20 0RF Discharge Orders: Discharge Order (Routine); Ordered 12/09/22 Ordered By: Unique Kay Consulting provider completed their portion of the discharge: Yes Patient Education: OB Vaginal/Breast Feeding Additional Instructions: Follow up with Dr. Ferrer at the [facility] in [place] on November at 10:50 AM for blood pressure check. Monitor blood pressure once per day at home. Rest for at least 10 minutes prior to obtaining your blood pressure. Sit straight with your feet flat on the floor. Record your blood pressure. Report any blood pressures greater than 140/90 (either number). If blood pressure reading is greater than 160/110 (either number) go in to clinic or Emergency Room to be seen. Activity Level: Activity as Tolerated Discharge Diet: Regular Follow Up Appointments: Lauren Ferrer MD [Primary Care Provider] - (Blood pressure check in 3-5 days) Forms: [employer] Info Instructions
== END 2022-12-09 11:00 | disposition home or self-care (01) | DRG 541 ==
LOC: OB OUT 17:28 → OB 17:28
PROVIDERS: Obstetrics & Gynecology; Admitting Provider Family Medicine; PCP Family Medicine; Visit Provider Family Medicine
PROC: 0UT70ZZ Resection of Bilateral Fallopian Tubes, Open Approach (ICD-10-PCS; CPT 58605; principal; 2022-12-07 09:30)
DX: O60.14X0 Preterm labor third trimester with preterm delivery third trimester, not applicable or unspecified (principal); O34.219 Maternal care for unspecified type scar from previous cesarean delivery; O62.3 Precipitate labor; O70.1 Second degree perineal laceration during delivery; R03.0 Elevated blood-pressure reading, without diagnosis of hypertension; R11.2 Nausea with vomiting, unspecified; O99.62 Diseases of the digestive system complicating childbirth; K80.20 Calculus of gallbladder without cholecystitis without obstruction; J45.909 Unspecified asthma, uncomplicated; O99.344 Other mental disorders complicating childbirth; F32.A Depression, unspecified; Z30.2 Encounter for sterilization; Z3A.36 36 weeks gestation of pregnancy; Z37.0 Single live birth
CPT/HCPCS: 00851; 36415; 74177; 76819; 80076; 82565; 82570; 83690; 84156; 84450; 84460; 84520; 85018; 85025; 85027; 86850; 86900; 86901; 88302; 99199; A9270; J1100; J1885; J2250; J2270; J2371; J2405; J2704; J3010; J7120; Q9967; S5010

== ENCOUNTER 2023-01-06 13:06 | Outpatient (CLI) | payer BC, OTHER, SELFPAY ==
--- NOTE | 2023-01-06 17:00 | P.LACCB_ITS ---
Consult Note - Mom Date of Visit Date of visit: 01/06/23 engineering consultant: Isabel Qureshi Visit Code: Visit Patient's Information Phone number: [phone] : 3 Para: 2 Allergies No Known Drug Allergies Allergy (Verified 12/06/22 08:57) Mother's Medical History: Medical History BMI > 30, depression, pp htn Delivery Information Delivery type: Weeks Gestation: 36.2 Gestational Age: AGA Weight: 2.58 kg Discharge Weight: 2.366 kg Baby's Information Baby's Age at Visit: one month Baby's Provider or Clinic: Dr. Ferrer Jaundice: No Reason for Consult Reason for Consult: slow weight gain, concern for transfer Past Experience Past Experience: No Current Frequency of Day Feedings: every 3 - 4 hours around the clock Both Breasts: Yes Suck: not aggressive Latch: fairly wide Length of Time: about 20 minutes/side Pumping Pumping: Yes (occasionally, with the Haakaa) Quantity Pumped: at least one oz total Supplementing EMB Supplement: Yes Formula Supplement: No Baby Elimination Number of Wet Diapers a Day: 6 - 8 Number of BM a Day: 1 - 2 Breast/Nipple Condition Breast Information: WNL Onsite Pre-Feed weight: 2.632 kg Post-Feed weight: 2.656 kg Milk Transferred (mL): 24 Assessments/Interventions Assessments/Interventions: Met with mom and this now one month old ex- 36 week AGA baby for consult. Mom and PCP report baby has been slow to gain weight and they are concerned about how much she's transferring when nursing. Baby was seen on 01/03 by PCP and was only about 2 oz above BW at almost one month of age. Per mom, instructions were to breastfeed but then offer one oz EBM/formula after each nursing session. She reports that over the weekend baby nursed every 3 - 4 hours, she offered both sides and tried to keep baby on each side for about 20 minutes. She reports baby seems satisfied after nursing most of the time so she only occasionally offered any supplement. She isn't pumping but used her Haakaa several times getting at least 1 oz each time. Breasts WNL- symmetrical with rounded lower quadrants, intramammary distance is <1.5 inches. Nipples are everted and don't flatten or retract on compression, no damage noted. Baby didn't really gain or loose any weight over the weekend. Mom denied any caput/cephalohematoma at delivery. States baby has equal ROM when turning her head and moving her extremities. Baby's palate is a little elevated. Her upper frenulum is WNL. She has more of a chomp when sucking on a finger as opposed to a suck and the tongue doesn't always come over the gum line. There's also some canoeing when lateralizing. The lower frenulum wasn't visualized, posterior? Mom latched baby to the right side and reported a stronger suck when she was verbally coached to have baby more tummy to tummy. Baby needed a lot of stimulation to stay awake and after about 10 minutes, mom switched her to the left side. She was a little more aggressive on the left, the latch was fairly wide and mom was comfortable. Mom switched her back and forth one more time for a total feeding time of 30 minutes. Baby transferred 24 ml. Plan: 1. Continue nursing about every 3 -4 hours, more often if baby shows feeding cues. Continue offering both sides and work to keep her awake and active at the breast. Suggested she keep the nursing sessions to 20 - 30 minutes total. 2. Supplement baby with EBM/formula after every nursing session. Can start with 1 oz but every few feedings increase the amount. Reviewed with mom that a baby this age usually needs 3 - 4 oz/feeding. 3. Encouraged mom to start pumping to help maintain her supply, suggested 4 times/day. Mom was measured and a smaller flange size was suggested, handout given. 4. Mom practiced a few oral exercises to possibly help baby develop a stronger suck and extend her tongue more consistently over the gum line. 5. Baby has a f/u weight check later this week with PCP. Will f/u by phone on 01/13 to see how things are going. Meds Home Medications and Allergies Home Medications Medication Instructions Recorded Confirmed Type docosahexaenoic acid 200 mg mg PO PRN 10/28/22 10/28/22 History capsule ( DHA) fluoxetine 40 mg capsule 40 mg PO DAILY 10/28/22 11/21/22 History diphenhydramine HCl 50 mg/30 mL 25 mg PO QHS 11/21/22 11/21/22 History oral liquid (NightTime Sleep Aid (diphenhydramine)) Allergies Allergy/AdvReac Type Severity Reaction Status Date / Time No Known Drug Allergies Allergy Verified 12/06/22 08:57
== END 2023-01-06 13:07 | disposition home or self-care (01) ==
LOC: OB LAC 13:07
PROVIDERS: PCP Family Medicine; Visit Provider Obstetrics & Gynecology
DX: Z39.1 Encounter for care and examination of lactating mother (principal)
CPT/HCPCS: 99211

== ENCOUNTER 2023-01-30 06:35 | Day surgery (SDC) | payer BC, OTHER, SELFPAY ==
[2023-01-30] VITALS (14 sets, daily range): BP systolic 142–174; BP diastolic 76–94; PULSE 50–68; RESP 12–16; TEMP 36.1–36.8; O2SAT 89–100; BMI 38.5
[2023-01-30 06:54] LABS: Ur HCG Qualitative* Negative (Negative)
[2023-01-30] MEDS: SODIUM CHLORIDE 0.9 % (FLUSH) 10 ML SYRINGE IVF (07:10)
[2023-01-30] MEDS: LACTATED RINGERS 1000 ML 1,000 ML 100 ML IV (07:10)
[2023-01-30] MEDS: CEFAZOLIN 2 GM INJ IVP (08:10)
[2023-01-30] MEDS: BUPIVACAINE 0.25% 30 ML INJECTION (08:38)
--- NOTE | 2023-01-30 09:26 | P.GSOP_ITS ---
Operative Note Pre-op diagnosis: Biliary colic Post-op diagnosis: same Type of Procedure: laparoscopic cholecystectomy Indications: Patient is a 32-year-old female who during her developed severe right upper quadrant pain. She was found to have gallstones. She delivered at 36 weeks and was referred to discuss cholecystectomy. She has had no further symptoms after delivery. After discussion of risks she agreed to proceed. Procedure Description: After discussing the risks and benefits of the procedure, the patient signed inf ormed consent.? The operative site was marked and the patient was brought to the operating room and placed on the operating table in supine position.? Care was taken to pad the patient's pressure points.?? The patient was then intubated by anesthesia.?? The operative site was then prepped and draped in the usual sterile fashion.? A time-out was then performed. Entrance to the abdomen was gained via a 5 mm Visiport in the left upper quadrant. The abdomen was insufflated and briefly surveyed for signs of injury. There was none. A 10 mm umbilical port was placed as well as 2 working ports along the right costal margin, all under direct vision. The patient was then placed in reverse Trendelenburg position with the right side up. The gallbladder fundus was grasped and retracted cephalad. The infundibulum was grasped. A combination of hook cautery and blunt dissection was used to carefully dissect out the cystic duct and artery until they could clearly be seen entering the gallbladder without any intervening structures. The gallbladder was dissected off the cystic plate to achieve the critical view. Once this was achieved the cystic duct and artery were each clipped with 2 clips proximally and 1 clip distally and transected with the scissors. The gallbladder was then taken off of the liver bed and removed from the abdomen using an Endo-Catch bag. The gallbladder bed was surveyed for hemostasis which appeared adequate. A small amount of bile which had spilled was suctioned from the abdomen. The umbilical port fascia was closed with 0 Vicryl. The remaining ports were then removed and the abdomen desufflated. The skin was closed with absorbable subcuticular suture. Sterile dressings were applied. Instrument sponge and needle counts were correct at the end of the case. The patient was then woken and transferred to the PACU in stable condition. ? The patient tolerated the procedure well. Findings: No significant gallbladder inflammation Surgeon: Chloe Oh MD Estimated blood loss (mL): 5 Specimen: Gallbladder Condition: stable Disposition: PACU Date of procedure: 01/30/23
--- NOTE | 2023-01-30 09:31 | W.ANESCHARGE ---
Anesthesia Charges Start Date/Time Anesthesia Start Date: 01/30/23 Anesthesia Start Time: 08:00 Stop Date/Time Anesthesia Stop Date: 01/30/23 Anesthesia Stop Time: 09:29
--- NOTE | 2023-01-30 09:51 | W.ANESCHARGE ---
Anesthesia Charges Start Date/Time Anesthesia Start Date: 01/30/23 Anesthesia Start Time: 08:00 Stop Date/Time Anesthesia Stop Date: 01/30/23 Anesthesia Stop Time: 09:29
[2023-01-30] MEDS: ONDANSETRON 2 MG/ML inj 4 MG IVP (10:30)
[2023-01-30] MEDS: HYDROCODONE-ACETAMIN 5-325 MG 1 TAB PO (10:49)
== END 2023-01-30 11:50 | disposition home or self-care (01) ==
PROVIDERS: Anesthesiology; PCP Family Medicine; Visit Provider Surgery
PROC: 0FT44ZZ Resection of Gallbladder, Percutaneous Endoscopic Approach (ICD-10-PCS; CPT 47562; principal; 2023-01-30 08:00)
DX: K81.1 Chronic cholecystitis (principal)
CPT/HCPCS: 47562; 00790; 81025; 88304; A9270; J0330; J0665; J0690; J1100; J1885; J2250; J2405; J2704; J2710; J3010; J7120